=== PATIENT | female | born 1960 | race African-American/Black ===

== ENCOUNTER 2017-06-02 17:35 | Emergency (ER) | payer OTHER ==
[2017-06-02 18:44] VITALS: BP 172/91
--- NOTE | 2017-06-02 20:06 | Cat Scan Report ---
FINAL REPORT PROCEDURE: CT HEAD/BRAIN WO CON TECHNIQUE: Computerized tomography of the head was performed without contrast material. HISTORY: Closed head injury; s/p fall with hematoma COMPARISON: No prior studies are available for comparison. FINDINGS: Skull and scalp: Scalp hematoma posterior right posterior head area with no underlying skull fracture seen. No subjacent subdural or epidural hematoma. Paranasal sinuses: Normal. Ventricles and subarachnoid spaces: Normal. Cerebrum: No evidence of hemorrhage, acute infarction or mass . Cerebellum and brainstem: No evidence of hemorrhage, acute infarction or mass. Vasculature: Normal. Comments: Basal ganglia microcalcification IMPRESSION: No acute intracranial bleed or skull fracture seen
--- NOTE | 2017-06-02 22:39 | Cat Scan Report ---
FINAL REPORT EXAM: CT CERVICAL SPINE WO CON HISTORY: FALL TECHNIQUE: Noncontrast serial axial images through the cervical spine with coronal and sagittal reconstruction. PRIORS: None. FINDINGS: No gross abnormality is seen in the visualized portion of the brain. Mastoid air cells are well aerated. Prevertebral soft tissues appear within normal limits. Visualized portion of the lung apices are clear. No acute fracture or anterolisthesis is identified. Mild degenerative changes are noted. IMPRESSION: 1. No acute fracture or anterolisthesis is identified.
[2017-06-02 22:56] LABS: Basophils % (Auto) 0.8 % (0.0-1.8); Eosinophils % (Auto) 2.9 % (0.0-4.3); Hematocrit 42.7 % (30.3-42.9); Hemoglobin 14.3 gm/dl (10.1-14.3); Mean Corpuscular HGB Conc 34 % (30-34); Mean Corpuscular Hemoglobin 29 pg (28-32); Mean Corpuscular Volume 88 fl (79-97); Platelet Count 237 K/mm3 (140-440); Red Blood Count 4.87 M/mm3 (3.65-5.03); Red Cell Distribution Width 13.4 % (13.2-15.2); White Blood Count 10.1 K/mm3 (4.5-11.0)
[2017-06-02 23:05] LABS: Alanine Aminotransferase 18 units/L (7-56); Albumin 4.8 g/dL (3.9-5); Albumin/Globulin Ratio 1.6 %; Alkaline Phosphatase 98 units/L (35-129); Anion Gap 18 mmol/L; BUN/Creatinine Ratio 22; Blood Urea Nitrogen 11 mg/dL (7-17); Carbon Dioxide 26 mmol/L (22-30); Chloride 101.2 mmol/L (98-107); Glucose 91 mg/dL (65-100); Potassium 4.4 mmol/L (3.6-5.0); Sodium 141 mmol/L (137-145); Total Protein 7.8 g/dL (6.3-8.2)
== END 2017-06-03 00:34 | disposition left against medical advice (07) ==
LOC: ED 17:35
DX: R42 Dizziness and giddiness (principal); Z53.21 Procedure and treatment not carried out due to patient leaving prior to being seen by health care provider
CPT/HCPCS: 36415; 70450; 72125; 80053; 85025; 93005; 93010